=== PATIENT | male | born 2000 | race Caucasian/White ===

== ENCOUNTER 2019-07-07 19:51 | Emergency (ER) | payer SELFPAY ==
[2019-07-07 21:25] LABS: EOS # 0.4 (0.04-0.40); EOS % 5.4 % (0.0-4.0); HEMATOCRIT 45.3 % (36.0-47.0); HEMOGLOBIN 15.8 g/dL (12.5-16.1); LYMPH# 2.7 (1.50-4.00); MEAN CELL VOLUME 92 fl (78-95); MEAN CORPUSCULAR HEMOGLOBIN 32 pg (26-32); MEAN CORPUSCULAR HGB CONC 35 g/dL (33-37); MEAN PLATELET VOLUME 9.7 fl (7.4-10.4); MONO # 0.8 (0.20-0.80); NEU # 2.8 (1.40-6.50); PLATELET COUNT 244 K/mm3 (130-400); WHITE BLOOD COUNT 6.7 K/mm3 (4.8-10.8)
[2019-07-07 21:31] LABS: ALBUMIN 4.4 g/dL (3.5-5.0); POTASSIUM 4.3 mmol/L (3.5-5.1)
[2019-07-07 21:33] LABS: CALCIUM 9.5 mg/dL (8.3-10.5)
[2019-07-07 21:34] LABS: TOTAL PROTEIN 6.8 g/dL (6.4-8.3)
[2019-07-07 21:36] LABS: TOTAL BILIRUBIN 0.9 mg/dL (0.2-1.2)
[2019-07-07] MEDS ORDERED: PREDNISONE20 M1 PO (22:16)
[2019-07-07] MEDS ORDERED: ZOFRAN ODT4 MG PO (22:16)
[2019-07-07 22:29] VITALS: BP 105/57
== END 2019-07-07 22:30 | disposition home or self-care (01) ==
LOC: ED 19:51
PROVIDERS: Family Medicine
DX: J06.9 Acute upper respiratory infection, unspecified (principal); K29.70 Gastritis, unspecified, without bleeding; F17.210 Nicotine dependence, cigarettes, uncomplicated; Z20.828 Contact with and (suspected) exposure to other viral communicable diseases; Z79.1 Long term (current) use of non-steroidal anti-inflammatories (NSAID)